=== PATIENT | male | born 1965 | race Caucasian/White ===

== ENCOUNTER 2018-10-18 19:19 | Inpatient (IN) | payer MEDICAID ==
[~2018-10-18] VITALS: Ht 175.3 cm; Wt 89.8 kg
--- NOTE | 2018-10-18 22:50 | NUR ---
TD/RN NOTES ADMITTED PT, DIRECT TRANSFER FROM [place]. A/OX3. ON ROOM AIR, NO SOB NOTED. C/O PAIN ON BILATERAL FLANK. WITH INTACT AND PATENT LWRIST G18 HEPLOCK. VITAL SIGNS TAKEN AND ASSESSMENT DONE. ORIENTED TO ROOM AND USE OF CALL LIGHT. SAFETY MEASURES IN PLACED. CALL LIGHT WITHIN EASY REACH. NOTIFIED DR. MILLAN FOR ADMISSION ORDERS. WILL CONT TO MONITOR
[2018-10-18] MEDS ORDERED: MAGNESIUM HYDROXIDE 30 ML UDC PO PRN (23:30)
[2018-10-18] MEDS ORDERED: ACETAMINOPHEN 325 MG TABLET PO PRN (23:30)
[2018-10-18] MEDS ORDERED: LORAZEPAM 0.5 MG TABLET PO PRN (23:30)
[2018-10-18] MEDS ORDERED: ONDANSETRON HCL/PF 4 MG/2 ML VIAL IVP PRN (23:30)
[2018-10-18] MEDS ORDERED: Z GUARD REMEDY 2 OZ OINT TP PRN (23:30)
[2018-10-18] MEDS ORDERED: MAG HYDROX/AL HYDROX/SIMETH 30 ML UDC PO PRN (23:30)
[2018-10-18] MEDS ORDERED: ENOXAPARIN SODIUM 40 MG/0.4 ML DISP.SYRIN SQ SCH (23:30)
[2018-10-18] MEDS ORDERED: hydrALAZINE HCL 25 MG TABLET PO PRN (23:30)
[2018-10-18] MEDS ORDERED: ZOLPIDEM TARTRATE 5 MG TABLET PO PRN (23:30)
[2018-10-18] MEDS: IV NS 0.9% 1,000 ML IV PRN (23:38)
[2018-10-18] MEDS: LISINOPRIL (20MG) 20 MG TABLET PO SCH (23:40)
[2018-10-18] MEDS: HYDROCODONE/APAP 5/325MG 1 EACH TABLET PO PRN (23:42)
[2018-10-18 23:48] LABS: BASOPHILS # (AUTO) 0.1 /CMM (0.0-0.2); BASOPHILS % (AUTO) 1.4 % (0.0-2.0); EOSINOPHILS % (AUTO) 2.3 % (0.0-6.0); HEMATOCRIT 42 % (39-51); HEMOGLOBIN 14.3 g/dL (13.5-17.5); LYMPHOCYTES # (AUTO) 2.9 /CMM (0.8-4.8); LYMPHOCYTES % (AUTO) 27.7 % (20.0-44.0); MEAN CORPUSCULAR HGB CONC 34 g/dl (31.0-36.0); MEAN CORPUSCULAR VOLUME 92 fL (80-96); MONOCYTES # (AUTO) 1.2 /CMM (0.1-1.30); MONOCYTES % (AUTO) 11.5 % (2.0-12.0); NEUTROPHILS # (AUTO) 5.9 /CMM (1.8-8.9); NEUTROPHILS % (AUTO) 57.1 % (43.0-81.0); PLATELET COUNT (AUTO) 438 /CMM (150-450); RED BLOOD CELL COUNT(AUTO) 4.59 MIL/uL (4.5-6.0); WHITE BLOOD COUNT (AUTO) 10.3 K/uL (4.3-11.0)
[2018-10-18 23:55] VITALS: BP 149/68
[2018-10-19 00:07] LABS: ALBUMIN 2.8 g/dL (3.4-5.0); BILIRUBIN,TOTAL 0.7 mg/dL (0.2-1.0); CALCIUM, SERUM 9.2 mg/dL (8.5-10.1); CREATININE 1.7 mg/dL (0.6-1.3); MAGNESIUM 1.6 mg/dL (1.8-2.4); PHOSPHORUS 4.6 mg/dL (2.5-4.9); POTASSIUM 3.3 mmol/L (3.5-5.1); TOTAL PROTEIN, SERUM 7.2 g/dL (6.4-8.2)
[2018-10-19 00:21] LABS: THYROID STIMULATING HORMONE 3.252 uIU/mL (0.358-3.74)
--- NOTE | 2018-10-19 00:30 | NUR ---
RN NOTES SEEN AND EXAMINED BY DR MILLAN. ALL QUESTIONS AND CONCERNS ARE ANSWERED BY MD. NOTIFIED MD RE: C/O FLANK PAIN, POTASSIUM OF 3.3 AND TROP OF 0.037. MD ORDERED URINALYSIS. ORDERS NOTED AND CARRIED OUT
[2018-10-19 04:00] VITALS: BP 150/79
[2018-10-19 06:36] LABS: BASOPHILS # (AUTO) 0.1 /CMM (0.0-0.2); BASOPHILS % (AUTO) 0.9 % (0.0-2.0); EOSINOPHILS % (AUTO) 2.4 % (0.0-6.0); HEMATOCRIT 40 % (39-51); HEMOGLOBIN 13.6 g/dL (13.5-17.5); LYMPHOCYTES # (AUTO) 3.3 /CMM (0.8-4.8); LYMPHOCYTES % (AUTO) 33.9 % (20.0-44.0); MEAN CORPUSCULAR HGB CONC 34 g/dl (31.0-36.0); MEAN CORPUSCULAR VOLUME 91 fL (80-96); MONOCYTES % (AUTO) 10.4 % (2.0-12.0); NEUTROPHILS # (AUTO) 5.1 /CMM (1.8-8.9); NEUTROPHILS % (AUTO) 52.4 % (43.0-81.0); PLATELET COUNT (AUTO) 440 /CMM (150-450); RED BLOOD CELL COUNT(AUTO) 4.43 MIL/uL (4.5-6.0); WHITE BLOOD COUNT (AUTO) 9.7 K/uL (4.3-11.0)
--- NOTE | 2018-10-19 06:36 | NUR ---
RN NOTES PT REMAINED IN STABLE CONDITION. NO ACUTE CHANGES THROUGHOUT SHIFT. SAFETY MEASURES AND ASPIRATION PRECAUTION OBSERVED AT ALL TIMES. ALL NEEDS ANTICIPATED. WILL ENDORSE TO AM SHIFT RN FOR RODGER
[2018-10-19 06:38] LABS: CALCIUM, SERUM 8.8 mg/dL (8.5-10.1); CREATININE 1.6 mg/dL (0.6-1.3); MAGNESIUM 1.5 mg/dL (1.8-2.4); PHOSPHORUS 4.4 mg/dL (2.5-4.9); POTASSIUM 3.4 mmol/L (3.5-5.1)
--- NOTE | 2018-10-19 07:00 | NUR ---
[facility] RN INITIAL NOTES PT IN BED, AWAKE WITH C/O PAIN LEVEL 9 IN FLANK. PT IS A/OX4. ON TELE SR 65. ON ROOM AIR WITH NO RESP DISTRESS. IV FLUIDS RUNNING VIA R HAND NO S/SX INFECTION. PT IS NPO SINCE MIDNIGHT FOR US ABD. BED IN LOCKED/LOWEST POSITION. CALL LIGHT IN REACH .WILL CONT TO MONITOR.
[2018-10-19] MEDS ORDERED: POTASSIUM CHLORIDE 20 MEQ TAB.PRT.SR PO ONE (07:30)
[2018-10-19] MEDS: HYDROCODONE/APAP 5/325MG 1 EACH TABLET PO PRN ×3 (07:35→20:27)
[2018-10-19 08:00] VITALS: BP 170/84
[2018-10-19] MEDS: Magnesium 1GM/D5W 100ML PREMIX 100 ML IV SCH ×3 (08:10→11:20)
[2018-10-19] MEDS: LISINOPRIL (20MG) 20 MG TABLET PO SCH (09:35)
--- NOTE | 2018-10-19 10:16 | NUR ---
[facility] RN NOTES DR MINER ROUNDING WITH PT
[2018-10-19] MEDS: AMLODIPINE BESYLATE 10 MG TABLET PO SCH (10:39)
[2018-10-19] MEDS ORDERED: METO25TA20 PO (11:22)
[2018-10-19] MEDS ORDERED: FURO-144 PO (11:22)
[2018-10-19 12:00] VITALS: BP 185/91
[2018-10-19 14:34] LABS: APPEARANCE,URINE SL CLOUDY (CLEAR); BILIRUBIN,URINE NEGATIVE (NEGATIVE); BLOOD, URINE TRACE-INTA Ery/uL (NEGATIVE); COLOR,URINE YELLOW (YELLOW); KETONES,URINE NEGATIVE (NEGATIVE); LEUKOCYTE ESTERASE ,URINE NEGATIVE (NEGATIVE); NITRITE, URINE NEGATIVE (NEGATIVE); PROTEIN,URINE NEGATIVE (NEGATIVE); UGLUCOSE NEGATIVE (NEGATIVE); UROBILINOGEN,URINE 0.2 EU/dL (0.2)
[2018-10-19 14:53] LABS: BACTERIA,URINE Few /HPF (None Seen); RBC,URINE 0-2 /HPF (0-2); SQUAMOUS EPITHELIAL CELL,UR Rare /HPF (None Seen); WBC,URINE 0-2 /HPF (0-3)
[2018-10-19] MEDS: IV NS 0.9% 1,000 ML IV PRN (15:43)
[2018-10-19 16:00] VITALS: BP 156/81
--- NOTE | 2018-10-19 19:30 | NUR ---
[facility] RN NOTES PT ENDORSED TO PM NURSE FOR RODGER. PT IS ASLEEP IN BED. NO S/SX OF RESP DISTRESS. ALL NEEDS ATTENDED TO. BED IN LOCKED/LOWEST POSITION. CALL LIGHT IN REACH.
[2018-10-19 20:00] VITALS: BP 164/83
[2018-10-19] MEDS ORDERED: ENOXAPARIN SODIUM 40 MG/0.4 ML DISP.SYRIN SQ SCH (21:00)
--- NOTE | 2018-10-19 21:44 | NUR ---
[facility] RN INITIAL NOTES PT IN BED, AWAKE WITH C/O PAIN LEVEL 9 IN FLANK. PT IS A/OX4. ON TELE SR 67. ON ROOM AIR WITH NO RESP DISTRESS. IV FLUIDS@75ML/HR RUNNING VIA R HAND NO S/SX INFILTRATION OR INFECTION. PT IS NPO SINCE MIDNIGHT FOR US ABD. BED IN LOCKED/LOWEST POSITION. CALL LIGHT IN REACH .WILL CONT TO MONITOR.
[2018-10-20 00:59] VITALS: BP 149/68
[2018-10-20] MEDS: VALSARTAN 80 MG TABLET PO SCH ×2 (02:10→08:37)
[2018-10-20] MEDS: HYDROCODONE/APAP 5/325MG 1 EACH TABLET PO PRN ×2 (02:38→08:37)
[2018-10-20 04:00] VITALS: BP 150/79
--- NOTE | 2018-10-20 05:50 | NUR ---
[facility] RN CLOSING NOTES ENDORSED PT IN BED, AWAKE , A/OX4. ON TELE SR 67. ON ROOM AIR WITH NO RESP DISTRESS. IV FLUIDS@75ML/HR RUNNING VIA R HAND NO S/SX INFILTRATION OR INFECTION. PT IS NPO SINCE MIDNIGHT FOR US ABD. BED IN LOCKED/LOWEST POSITION. CALL LIGHT IN REACH .WILL CONT TO MONITOR.
--- NOTE | 2018-10-20 07:00 | NUR ---
[facility] RN INITIAL NOTES RECEIVED REPORT FROM PM SHIFT. PT IN BED ASLEEP BUT EASILY AROUSABLE. PT ON ROOM AIR NO S/SX OF DISTRESS. PT'S BP ELEVATED. IV SL NO S/SX INFECTION. CALL LIGHT IN REACH. BED IN LOCKED/LOWEST POSITION. WILL CONT TO MONITOR.
[2018-10-20 08:00] VITALS: BP 178/93
[2018-10-20 08:33] LABS: BASOPHILS # (AUTO) 0.1 /CMM (0.0-0.2); BASOPHILS % (AUTO) 1.1 % (0.0-2.0); EOSINOPHILS % (AUTO) 2.5 % (0.0-6.0); HEMATOCRIT 45 % (39-51); HEMOGLOBIN 15.4 g/dL (13.5-17.5); LYMPHOCYTES # (AUTO) 3.3 /CMM (0.8-4.8); LYMPHOCYTES % (AUTO) 33.5 % (20.0-44.0); MEAN CORPUSCULAR HGB CONC 34 g/dl (31.0-36.0); MEAN CORPUSCULAR VOLUME 91 fL (80-96); MONOCYTES # (AUTO) 0.7 /CMM (0.1-1.30); MONOCYTES % (AUTO) 7.1 % (2.0-12.0); NEUTROPHILS # (AUTO) 5.5 /CMM (1.8-8.9); NEUTROPHILS % (AUTO) 55.8 % (43.0-81.0); PLATELET COUNT (AUTO) 515 /CMM (150-450); RED BLOOD CELL COUNT(AUTO) 4.94 MIL/uL (4.5-6.0); WHITE BLOOD COUNT (AUTO) 9.8 K/uL (4.3-11.0)
[2018-10-20 08:36] LABS: BILIRUBIN,TOTAL 0.8 mg/dL (0.2-1.0); CALCIUM, SERUM 9.1 mg/dL (8.5-10.1); CREATININE 1.4 mg/dL (0.6-1.3); MAGNESIUM 1.6 mg/dL (1.8-2.4); PHOSPHORUS 4.2 mg/dL (2.5-4.9); POTASSIUM 3.6 mmol/L (3.5-5.1); TOTAL PROTEIN, SERUM 7.7 g/dL (6.4-8.2)
[2018-10-20] MEDS: AMLODIPINE BESYLATE 10 MG TABLET PO SCH (08:37)
[2018-10-20] MEDS ORDERED: SPIRONOLACTONE 25 MG TABLET PO SCH (10:00)
[2018-10-20] MEDS: Magnesium 1GM/D5W 100ML PREMIX 100 ML IV SCH ×2 (10:26→14:19)
[2018-10-20 12:00] VITALS: BP 162/84
[2018-10-20] MEDS ORDERED: NAPR-1164 PO (15:09)
[2018-10-20] MEDS ORDERED: SPIR25TA PO (15:09)
[2018-10-20] MEDS ORDERED: VALS80TA2 PO (15:09)
[2018-10-20] MEDS ORDERED: PRAZ5CAP2 PO (15:09)
[2018-10-20] MEDS ORDERED: ATOR20TA PO (15:09)
[2018-10-20] MEDS ORDERED: AMLO10TA6 PO (15:09)
[2018-10-20] MEDS ORDERED: PRAZOSIN HCL 1 MG CAPSULE PO ONE (15:30)
[2018-10-20 16:08] VITALS: BP 186/90
--- NOTE | 2018-10-20 17:00 | NUR ---
[facility] RN NOTES PT LEFT FLOOR ACCOMPANIED BY COMPLETIONS ENGINEER. ID BAND/IV REMOVED. DISCHARGE INSTRUCTIONS AND PRESCRIPTIONS WITH PATIENT. ALL NEEDS ATTENDED TO.
[2018-10-27 14:12] LABS: RENIN, PLASMA <0.167 ng/mL/hr (0.167-5.380)
== END 2018-10-20 16:48 | disposition home or self-care (01) | DRG 48 ==
LOC: TELE1 22:59 → TELE-TD 10-19 01:35
PROVIDERS: ADMIT Internal Medicine; ATTEND Nurse Practitioner Acute Care
DX: G90.8 Other disorders of autonomic nervous system (principal); E83.42 Hypomagnesemia; E27.9 Disorder of adrenal gland, unspecified; E78.5 Hyperlipidemia, unspecified; Z91.19 Patient's noncompliance with other medical treatment and regimen; Z82.49 Family history of ischemic heart disease and other diseases of the circulatory system; F14.10 Cocaine abuse, uncomplicated; E87.6 Hypokalemia; F17.200 Nicotine dependence, unspecified, uncomplicated; I12.9 Hypertensive chronic kidney disease with stage 1 through stage 4 chronic kidney disease, or unspecified chronic kidney disease; N18.9 Chronic kidney disease, unspecified; I16.0 Hypertensive urgency
CPT/HCPCS: 36415; 71045-TC; 76700-TC; 80048-TC; 80053-TC; 80061-TC; 80074; 81000-TC; 82088; 82533; 83735-TC; 84100-TC; 84244; 84443-TC; 84484-TC; 85025-TC; 93307-TC; G0378; J1650; J3475; J7030

== ENCOUNTER 2019-11-02 06:08 | Emergency (ER) | payer MEDICAID, OTHER ==
[~2019-11-02] VITALS: Ht 177.8 cm; Wt 81.6 kg
[~2019-11-02 06:08] MED LIST: AMLO10TA7 PO; ATOR20TA PO; NAPR-1164 PO; PRAZ5CAP2 PO; SPIR25TA PO; VALS80TA2 PO
--- NOTE | 2019-11-02 06:48 | NUR ---
PT [id number] FROM HOME C/C CHEST PRESSURE S/P ARGUMENT WITH . PT AAOX4, NO ACUTE DISTRESS NOTED, BREATHING EVEN AND UNLABORED ON ROOM AIR. PT CONNECTED TO THE CARDAIC MONITOR AND POX
[2019-11-02 07:03] LABS: BASOPHILS # (AUTO) 0.1 /CMM (0.0-0.2); BASOPHILS % (AUTO) 0.5 % (0.0-2.0); EOSINOPHILS % (AUTO) 0.4 % (0.0-6.0); HEMATOCRIT 48 % (39-51); HEMOGLOBIN 16.7 g/dL (13.5-17.5); LYMPHOCYTES # (AUTO) 3.2 /CMM (0.8-4.8); LYMPHOCYTES % (AUTO) 26.6 % (20.0-44.0); MEAN CORPUSCULAR HGB CONC 35 g/dl (31.0-36.0); MEAN CORPUSCULAR VOLUME 91 fL (80-96); MONOCYTES # (AUTO) 0.9 /CMM (0.1-1.30); MONOCYTES % (AUTO) 7.2 % (2.0-12.0); NEUTROPHILS # (AUTO) 7.8 /CMM (1.8-8.9); NEUTROPHILS % (AUTO) 65.3 % (43.0-81.0); PLATELET COUNT (AUTO) 314 /CMM (150-450); RED BLOOD CELL COUNT(AUTO) 5.24 MIL/uL (4.5-6.0)
[2019-11-02 07:10] LABS: CALCIUM, SERUM 9.6 mg/dL (8.5-10.1); CREATININE 1.3 mg/dL (0.6-1.3); POTASSIUM 3.1 mmol/L (3.5-5.1)
[2019-11-02 07:21] LABS: ALBUMIN 4.2 g/dL (3.4-5.0); BILIRUBIN,DIRECT 0.3 mg/dL (0.0-0.2); BILIRUBIN,TOTAL 1.3 mg/dL (0.2-1.0); TOTAL PROTEIN, SERUM 8.1 g/dL (6.4-8.2)
[2019-11-02 07:38] VITALS: BP 134/61
== END 2019-11-02 07:39 | disposition home or self-care (01) ==
LOC: ER 06:10
DX: R07.89 Other chest pain (principal); I12.9 Hypertensive chronic kidney disease with stage 1 through stage 4 chronic kidney disease, or unspecified chronic kidney disease; N18.9 Chronic kidney disease, unspecified; Z79.899 Other long term (current) drug therapy
CPT/HCPCS: 36415; 71045-TC; 80048-TC; 80076-TC; 83880; 84484-TC; 85025-TC; 85730-TC

== ENCOUNTER 2019-11-02 12:36 | Emergency (ER) | payer OTHER ==
[~2019-11-02] VITALS: Ht 182.9 cm; Wt 81.6 kg
[2019-11-02 12:52] VITALS: BP 151/87
== END 2019-11-02 13:13 ==
LOC: ER 12:36
DX: R07.89 Other chest pain (principal); I12.9 Hypertensive chronic kidney disease with stage 1 through stage 4 chronic kidney disease, or unspecified chronic kidney disease; N18.9 Chronic kidney disease, unspecified; Z79.899 Other long term (current) drug therapy; Z02.89 Encounter for other administrative examinations